=== PATIENT | female | born 1945 | race Caucasian/White ===

== ENCOUNTER 2017-12-23 08:12 | Emergency (ER) | payer OTHER ==
[~2017-12-23] VITALS: Ht 157.5 cm; Wt 49.9 kg
[2017-12-23 08:15] VITALS: BP 143/90
[2017-12-23] MEDS ORDERED: Vancomycin 1 GM in NS 275 ML IVPB ONE (08:30)
--- NOTE | 2017-12-23 08:31 | Emergency Room Report ---
History of Present Illness General Chief Complaint: Altered Level of Consciousness Source: Medical Record, EMS Present Illness HPI Patient presents from nursing facility with reports of altered mental status Upon arrival the patient is awake responds minimally to verbal stimuli However not able to formulate full sentences Appears tachypneic Review of medical records reveals recent positive cultures from unknown source of wound possibly from the ankle which has had previous osteomyelitis showing multiple resistant bacteria Patient herself is not able to provide history this does limit the history of present illness significantly Allergies: Coded Allergies: No Known Allergies (Unverified , 12/23/17) Patient History Limited by: medical condition Past Medical History: see triage record Pertinent Family History: unable to obtain Last Menstrual Period: na Reviewed Nursing Documentation: PMH: Agreed, PSxH: Agreed Review of Systems All Other Systems: limited - Other than the ones mentioned in the history of present illness all others are reviewed however they do stay limited due to the patient's mental status Physical Exam Vital Signs Date Time Temp Pulse Resp B/P (MAP) Pulse Ox O2 Delivery O2 Flow Rate FiO2 12/23/17 08:05 103.1 124 35 143/90 95 Room Air 103.1 Sp02 EP Interpretation: reviewed, normal General Appearance: mild distress - Appears tachypneic and uncomfortable Head: normocephalic, atraumatic Eyes: bilateral eye PERRL ENT: other - Poor dentition and severely dry oral mucosa Neck: supple, thyroid normal Respiratory: crackles - And mildly tachypneic Cardiovascular #1: tachycardia Gastrointestinal: non tender, soft Genitourinary: no CVA tenderness Musculoskeletal: other - Patient moves both upper extremities towards physical stimuli Neurologic: responsive - to physical and verbal stimuli, patient appears chronically debilitated and ill Skin: other - Multiple skin breakdown Lymphatic: no adenopathy Medical Decision Making Diagnostic Impression: Primary Impression: Sepsis Additional Impressions: UTI (urinary tract infection) Osteomyelitis ER Course Patient has aggressive hydration and antibiotics initiated Review of medical records reveals recent culture of wound showing sensitivity to vancomycin Patient with blood cell count mildly elevated also showing evidence of UTI Patient has done better with heart rate and mentation and requires admission for further care Labs Test 12/23/17 08:40 White Blood Count 14.1 K/UL (4.8-10.8) Red Blood Count 3.73 M/UL (4.20-5.40) Hemoglobin 9.2 G/DL (12.0-16.0) Hematocrit 29.2 % (37.0-47.0) Mean Corpuscular Volume 78 FL (80-99) Mean Corpuscular Hemoglobin 24.7 PG (27.0-31.0) Mean Corpuscular Hemoglobin Concent 31.5 G/DL (32.0-36.0) Red Cell Distribution Width 15.0 % (11.6-14.8) Platelet Count 373 K/UL (150-450) Mean Platelet Volume 6.6 FL (6.5-10.1) Neutrophils (%) (Auto) % (45.0-75.0) Lymphocytes (%) (Auto) % (20.0-45.0) Monocytes (%) (Auto) % (1.0-10.0) Eosinophils (%) (Auto) % (0.0-3.0) Basophils (%) (Auto) % (0.0-2.0) Differential Total Cells Counted 100 Neutrophils % (Manual) 93 % (45-75) Lymphocytes % (Manual) 4 % (20-45) Monocytes % (Manual) 3 % (1-10) Eosinophils % (Manual) 0 % (0-3) Basophils % (Manual) 0 % (0-2) Band Neutrophils 0 % (0-8) Platelet Estimate Adequate Platelet Morphology Normal Anisocytosis 1+ Microcytosis 1+ Urine Color Yellow Urine Appearance Clear Urine pH 6 (4.5-8.0) Urine Specific [place] 1.015 (1.005-1.035) Urine Protein 4+ (NEGATIVE) Urine Glucose (UA) Negative (NEGATIVE) Urine Ketones Negative (NEGATIVE) Urine Occult Blood 3+ (NEGATIVE) Urine Nitrite Positive (NEGATIVE) Urine Bilirubin Negative (NEGATIVE) Urine Urobilinogen Normal MG/DL (0.0-1.0) Urine Leukocyte Esterase 2+ (NEGATIVE) Urine RBC 2-4 /HPF (0 - 2) Urine WBC 5-10 /HPF (0 - 2) Urine Squamous Epithelial Cells Few /LPF (NONE/OCC) Urine Bacteria Few /HPF (NONE) Urine Yeast Few /HPF (NONE) Sodium Level 139 MMOL/L (136-145) Potassium Level 3.6 MMOL/L (3.5-5.1) Chloride Level 105 MMOL/L (98-107) Carbon Dioxide Level 23 MMOL/L (21-32) Anion Gap 11 mmol/L (5-15) Blood Urea Nitrogen 21 mg/dL (7-18) Creatinine 1.1 MG/DL (0.55-1.30) Estimat Glomerular Filtration Rate mL/min (>60) Glucose Level 141 MG/DL (74-106) Lactic Acid Level 1.10 mmol/L (0.66-2.22) Calcium Level 8.6 MG/DL (8.5-10.1) Total Bilirubin 0.3 MG/DL (0.2-1.0) Aspartate Amino Transf (AST/SGOT) 18 U/L (15-37) Alanine Aminotransferase (ALT/SGPT) 10 U/L (12-78) Alkaline Phosphatase 71 U/L (46-116) Total Creatine Kinase 23 U/L (26-308) Creatine Kinase MB < 0.5 NG/ML (0.0-3.6) Creatine Kinase MB Relative Index Troponin I 0.001 ng/mL (0.000-0.056) Pro-B-Type Natriuretic Peptide 953 pg/mL (0-125) Total Protein 8.6 G/DL (6.4-8.2) Albumin 2.5 G/DL (3.4-5.0) Globulin 6.1 g/dL Albumin/Globulin Ratio 0.4 (1.0-2.7) Lipase 80 U/L (73-393) Rhythm Strip Diag. Results EP Interpretation: yes Rate: 110 Rhythm: no PVC's, no ectopy, other - Sinus tach Chest X-Ray Diagnostic Results Chest X-Ray Diagnostic Results : Chest X-Ray Ordered: Yes # of Views/Limited/Complete: 1 View Indication: Shortness of Breath EP Interpretation: Yes Interpretation: no consolidation, no effusion, no pneumothorax, no acute cardiopulmonary disease - Cardiomegaly Impression: No acute disease Electronically Signed by: Kofi Campbell DO Last Vital Signs Date Time Temp Pulse Resp B/P (MAP) Pulse Ox O2 Delivery O2 Flow Rate FiO2 12/23/17 08:05 103.1 124 35 143/90 95 Room Air 103.1 Status: improved Disposition: XFER [facility] Condition: Improved Kofi Campbell DO Dec 23, 2017 08:30
[2017-12-23] MEDS ORDERED: Vancomycin 1gm inj IVPB ONE (08:51)
[2017-12-23 08:57] LABS: APPEARANCE,URINE CLEAR; BILIRUBIN, URINE NEGATIVE (NEGATIVE); GLUCOSE, URINE (UA) NEGATIVE (NEGATIVE); KETONES,URINE NEGATIVE (NEGATIVE); LEUKOCYTE ESTERASE ,URINE 2+ (NEGATIVE); NITRITE,URINE POSITIVE (NEGATIVE); PH,URINE 6 (4.5-8.0); PROTEIN,URINE 4+ (NEGATIVE); UROBILINOGEN,URINE NORMAL MG/DL (0.0-1.0)
[2017-12-23 08:58] LABS: HEMATOCRIT 29.2 % (37.0-47.0); HEMOGLOBIN 9.2 G/DL (12.0-16.0); MEAN CORPUSCULAR VOLUME 78 FL (80-99); PLATELET COUNT 373 K/UL (150-450); RED BLOOD COUNT 3.73 M/UL (4.20-5.40); WHITE BLOOD COUNT 14.1 K/UL (4.8-10.8)
[2017-12-23] MEDS ORDERED: NS 275 ML ONE (09:06)
[2017-12-23 09:07] LABS: ANION GAP 11 mmol/L (5-15); BLOOD UREA NITROGEN 21 mg/dL (7-18); CALCIUM 8.6 MG/DL (8.5-10.1); CARBON DIOXIDE 23 MMOL/L (21-32); CHLORIDE 105 MMOL/L (98-107); CREATININE 1.1 MG/DL (0.55-1.30); POTASSIUM 3.6 MMOL/L (3.5-5.1); SODIUM 139 MMOL/L (136-145)
[2017-12-23 09:13] LABS: COLOR,URINE YELLOW
[2017-12-23] MEDS ORDERED: LEXAPRO10 MG ORAL (09:15)
[2017-12-23] MEDS ORDERED: MULTIVITAMINS1 EAC8 ORAL (09:15)
[2017-12-23] MEDS ORDERED: LOMOTIL TABLET1 EACH ORAL (09:15)
[2017-12-23] MEDS ORDERED: DULCOLAX10 MG RC (09:15)
[2017-12-23] MEDS ORDERED: ARTIFICIAL TEAR15 ML BOTH EYES (09:15)
[2017-12-23] MEDS ORDERED: NORCO 10-325 T1 EACH ORAL (09:15)
[2017-12-23] MEDS ORDERED: MILK OF MA400 MG/51 ORAL (09:15)
[2017-12-23] MEDS ORDERED: LOVENOX10 M4 SUBQ (09:15)
[2017-12-23] MEDS ORDERED: FLEET ENEMA133 ML RECTAL (09:15)
[2017-12-23] MEDS ORDERED: ASPIRIN EC81 MG ORAL (09:15)
[2017-12-23] MEDS ORDERED: AMBIEN5 MG ORAL (09:15)
[2017-12-23] MEDS ORDERED: CAFERGOT TABLE1 EACH PO (09:15)
[2017-12-23] MEDS ORDERED: ACIDOPHILUS1 EAC6 PO (09:15)
[2017-12-23] MEDS ORDERED: COZAAR50 MG ORAL (09:15)
[2017-12-23] MEDS ORDERED: XANAX0.5 MG ORAL (09:18)
[2017-12-23] MEDS ORDERED: ZYPREXA2.5 MG ORAL (09:18)
[2017-12-23] MEDS ORDERED: VITAMIN C500 M1 ORAL (09:18)
[2017-12-23] MEDS ORDERED: ZOFRAN 4 MG4 MG/2 ML IV (09:18)
[2017-12-23] MEDS ORDERED: ZINC SULFATE220 M1 ORAL (09:18)
[2017-12-23] MEDS ORDERED: PROTONIX40 MG ORAL (09:18)
[2017-12-23 09:22] LABS: ALANINE AMINOTRANSFERASE 10 U/L (12-78); ALBUMIN 2.5 G/DL (3.4-5.0); ALBUMIN/GLOBULIN RATIO 0.4 (1.0-2.7); ALKALINE PHOSPHATASE 71 U/L (46-116); ASPARTATE AMINO TRANSFERASE 18 U/L (15-37); BILIRUBIN,TOTAL 0.3 MG/DL (0.2-1.0); CKMB < 0.5 NG/ML (0.0-3.6); CREATINE KINASE 23 U/L (26-308)
[2017-12-23 10:29] VITALS: BP 141/87
--- NOTE | 2017-12-23 11:09 | Diagnostic Imaging Report ---
Indication: Chest pain Technique: XRAY Chest 1v Comparison: None Findings: Patient rotated to left. Lung volumes are low. Heart appears borderline enlarged. There is patchy opacity at the left base which may be related to atelectasis however developing pneumonia is not entirely excluded. No pneumothorax. Question trace left pleural effusion. There is osteopenia, scoliosis and degenerative change of the spine. A left arm PICC line has its catheter tip in the region of the lower SVC. IMPRESSION: Limited exam given the lung volumes and patient rotation. Patchy left basilar airspace opacities may related to atelectasis however developing pneumonia isn't excluded. Question trace left pleural effusion. Question borderline cardiomegaly. Left arm PICC line in place.
[2017-12-23 11:11] VITALS: BP 146/88
[2017-12-23] MEDS ORDERED: Acetaminophen 650 MG SUPP RECTAL ONE (11:30)
[2017-12-23 12:45] VITALS: BP 126/78
[2017-12-23 13:01] VITALS: BP 126/78
--- NOTE | 2017-12-25 18:39 | Cardiology Report ---
APPROVED REPORT EKG Measurement Heart [id number] IN 136P [id number] Sinus tachycardia Left axis deviation Inferior infarct, age undetermined Anterolateral infarct, age undetermined Abnormal ECG
== END 2017-12-23 13:09 | disposition short-term general hospital (02) ==
LOC: EDBD 08:12 → EMR 08:40
DX: A41.9 Sepsis, unspecified organism (principal); N39.0 Urinary tract infection, site not specified; M86.9 Osteomyelitis, unspecified; R06.02 Shortness of breath
CPT/HCPCS: 36415; 71045; 80053; 81003; 82550; 82553; 83605; 83690; 83880; 84484; 85007; 85025; 86710; 87040; 87081; 87086; 87181; 93005; 96374; 96375; 99285; J3370; J7050